=== PATIENT | male | born 1955 | race Two or more races ===

== ENCOUNTER 2022-04-30 11:33 | Inpatient (IN) | payer OTHER ==
[~2022-04-30] VITALS: Ht 172.7 cm; Wt 68.6 kg
--- NOTE | 2022-04-30 11:35 | NUR ---
RECEIVED PT 67 YRS MALE CAME HOME BY FAMILY CARE C/O TRIP AND FALL LAST NIGHT C/O PAIN ON RT HIP DIFFORMITY
--- NOTE | 2022-04-30 11:40 | NUR ---
SEEN BY DR. ROCHA
--- NOTE | 2022-04-30 11:50 | NUR ---
MOVE SHEET SUBMITTED.
--- NOTE | 2022-04-30 11:57 | NUR ---
X RAY AT BED SIDE
--- NOTE | 2022-04-30 12:00 | NUR ---
PT REFUSED PAIN MEDICTION
[2022-04-30] MEDS ORDERED: AMLO-212 PO (12:27)
--- NOTE | 2022-04-30 12:40 | NUR ---
C XRAY DONE AT BED SIDE
--- NOTE | 2022-04-30 12:45 | NUR ---
INSERTED ANG CATHETER G 18 ON LT AC BLOOD DROW AND SENT TO LAB T&C MTACH BLOOD DROW
[2022-04-30 12:59] LABS: HEMATOCRIT 40 % (39-51); HEMOGLOBIN 13.1 g/dL (13.5-17.5); MEAN CORPUSCULAR HGB CONC 33 g/dl (31.0-36.0); MEAN CORPUSCULAR VOLUME 95 fL (80-96); NEUTROPHILS % (AUTO) 87.4 % (43.0-81.0); PLATELET COUNT (AUTO) 175 K/uL (150-450); WHITE BLOOD COUNT (AUTO) 14.4 K/uL (4.3-11.0)
[2022-04-30 13:00] LABS: BASOPHILS % (AUTO) 0.2 % (0.0-2.0); EOSINOPHILS % (AUTO) 0.2 % (0.0-6.0); LYMPHOCYTES # (AUTO) 0.9 K/uL (0.8-4.8); MONOCYTES # (AUTO) 0.9 K/uL (0.1-1.30); MONOCYTES % (AUTO) 6.2 % (2.0-12.0); NEUTROPHILS # (AUTO) 12.6 K/uL (1.8-8.9)
[2022-04-30 13:08] LABS: CALCIUM, SERUM 9.1 mg/dL (8.5-10.1); CREATININE 0.9 mg/dL (0.6-1.3); POTASSIUM 3.8 mmol/L (3.5-5.1)
--- NOTE | 2022-04-30 13:17 | NUR ---
COVID SWAB DONE AND SENT TO LAB
--- NOTE | 2022-04-30 13:38 | NUR ---
PT UCOOPRATIVE TRAY TO GOT OUT OF BED FOR VODING
[2022-04-30] MEDS ORDERED: MORPHINE SULFATE INJ 2 MG/ML DISP.SYRIN IV PRN (14:30)
[2022-04-30] MEDS ORDERED: Z GUARD REMEDY 4 OZ OINT TP PRN (14:30)
[2022-04-30] MEDS ORDERED: ACETAMINOPHEN 325 MG TABLET PO PRN (14:30)
[2022-04-30] MEDS ORDERED: MAGNESIUM HYDROXIDE 30 ML UDC PO PRN (14:30)
[2022-04-30] MEDS ORDERED: MAG HYDROX/AL HYDROX/SIMETH 30 ML UDC PO PRN (14:30)
[2022-04-30] MEDS ORDERED: ONDANSETRON HCL/PF 4 MG/2 ML VIAL IVP PRN (14:30)
--- NOTE | 2022-04-30 14:45 | NUR ---
TO CT SCAN OF RT HIP BY WC PT REFUSED TO BE TRANSFER BY JAYSHREE
--- NOTE | 2022-04-30 15:08 | NUR ---
BED 308-1 (ADMITTING MADE AWARE)
--- NOTE | 2022-04-30 15:35 | NUR ---
HAND OFF WANDA FERGUSON TO ROOM 308-1 VIA JAYSHREE STABLE VS STABLE CONDITION
--- NOTE | 2022-04-30 18:06 | NUR ---
PATIENT IS A/OX 4, VSS, AFEBRILE. ABLE TO MAKE NEEDS KNOWN. IV ACCESS ON L AC #18, SL. HU CATHETER WAS INSERTED, ADEQUATE OUTPUT. NPO P MN FOR POSSIBLE SURGERY TOMORROW. SAFETY MEASURES INITIATED. BED IN LOWEST POSITION, BRAKES LOCKED. SIDE RAILS UP X2. CALL LIGHT WITHIN REACH. WILL ENDORSE CONTINUITY OF CARE TO ONCOMING SHIFT.
[2022-04-30] MEDS: IV D5/0.45 NACL 1,000 ML IV PRN (18:46)
[2022-04-30 20:00] VITALS: BP 136/67
--- NOTE | 2022-04-30 20:02 | NUR ---
RN OPENING NOTE PATIENT AWAKE IN BED W/ FAMILY AT BEDSIDE. A/OX4. NO S/S OF DISTRESS, BREATHING WITHOUT DIFFICULTY ON ROOM AIR. LAC #18 INTACT AND PATENT. SAFETY MEASURES IN PLACE: BED LOCKED IN PLACE AND AT LOWEST POSITION, RAILS UP X2, CALL WALTERS WITHIN REACH. WILL CONTINUE TO MONITOR PATIENT.
--- NOTE | 2022-04-30 20:45 | NUR ---
RN NOTE PATIENT HAS REFUSED IVF. PATIENT STATES HE DOES NOT WANT THE FLUIDS AT THIS TIME. PATIENT O/W STABLE; WILL CONTINUE TO MONITOR PATIENT.
--- NOTE | 2022-05-01 05:40 | NUR ---
RN NOTE PATIENT SIGNED ALL NECESSARY CONSENTS FOR PROCEDURE DUE LATER ON TODAY - SCHEDULED FOR 1200. PATIENT GIVEN PATIENT'S RIGHTS ON BLOOD TRANSFUSION PAMPHLET. PATIENT EXHIBITS A POSITIVE ATTITUDE PROCEDURE ALBEIT WITH NOTED ANXIETY. PATIENT STABLE; WILL CONTINUE TO MONITOR.
[2022-05-01 05:44] LABS: BASOPHILS % (AUTO) 0.2 % (0.0-2.0); HEMATOCRIT 37 % (39-51); HEMOGLOBIN 12.2 g/dL (13.5-17.5); LYMPHOCYTES # (AUTO) 0.7 K/uL (0.8-4.8); LYMPHOCYTES % (AUTO) 7.3 % (20.0-44.0); MEAN CORPUSCULAR HGB CONC 33 g/dl (31.0-36.0); MEAN CORPUSCULAR VOLUME 94 fL (80-96); MONOCYTES # (AUTO) 1.2 K/uL (0.1-1.30); MONOCYTES % (AUTO) 11.3 % (2.0-12.0); NEUTROPHILS # (AUTO) 8.3 K/uL (1.8-8.9); NEUTROPHILS % (AUTO) 81.2 % (43.0-81.0); PLATELET COUNT (AUTO) 155 K/uL (150-450); RED BLOOD CELL COUNT(AUTO) 3.88 MIL/uL (4.5-6.0); WHITE BLOOD COUNT (AUTO) 10.2 K/uL (4.3-11.0)
[2022-05-01 06:04] LABS: ALBUMIN 3.2 g/dL (3.4-5.0); BILIRUBIN,TOTAL 0.6 mg/dL (0.2-1.0); CALCIUM, SERUM 8.7 mg/dL (8.5-10.1); CREATININE 0.7 mg/dL (0.6-1.3); MAGNESIUM 2.3 mg/dL (1.8-2.4); PHOSPHORUS 3.4 mg/dL (2.5-4.9); POTASSIUM 3.5 mmol/L (3.5-5.1); TOTAL PROTEIN, SERUM 6.9 g/dL (6.4-8.2)
--- NOTE | 2022-05-01 06:51 | NUR ---
RN CLOSING NOTE PATIENT AWAKE IN BED. A/OX4. NO S/S OF DISTRESS, BREATHING WITHOUT DIFFICULTY ON ROOM AIR. LAC #18 INTACT AND PATENT. PATIENT CONTINUES TO DECLINE IVF FOR NOW. SAFETY MEASURES IN PLACE: BED LOCKED AND AT LOWEST POSITION, RAILS UP X2. CALL WALTERS WITHIN REACH. WILL ENDORSE TO DAY SHIFT FOR EUN.
[2022-05-01 08:00] VITALS: BP 150/68
--- NOTE | 2022-05-01 08:21 | NUR ---
RN OPENING NOTE RECEIVED PATIENT IN BED, AO X 3. ABLE TO RESPONDS ALL STIMULI. RESPIRATORY EVEN AND UNLABORED IN ROOM AIR. IN NO ACUTE DISTRESS OBSERVED. SKIN IS WARM TO TOUCH, KEEP CLEAN/DRY. PATIENT UNDER GOING TO SURGERY FOR ORIF THIS AFTERNOON AND NPO STATUS. KEPT ELEVATED HOB FOR ASPIRATION PRECAUTION/ENSURE AIRWAY, ALSO LOWEST BED POSITIONED. BED ALARM IS ON AT ALL THE TIME FOR SAFETY. CALL LIGHT WITHIN REACH, WILL CONTINUE TO MONITOR.
[2022-05-01] MEDS: AMLODIPINE BESYLATE 5 MG TABLET PO SCH (09:00)
--- NOTE | 2022-05-01 09:32 | NUR ---
PATIENT GOING TO ORIF PROCEDURE, WILL HOLD PO MEDICATION.
[2022-05-01 10:16] LABS: BILIRUBIN,URINE NEGATIVE (NEGATIVE); COLOR,URINE YELLOW (YELLOW); LEUKOCYTE ESTERASE ,URINE NEGATIVE (NEGATIVE); NITRITE, URINE NEGATIVE (NEGATIVE); PH,URINE 7.5 (5.0-8.0); PROTEIN,URINE TRACE mg/dl (NEGATIVE); UGLUCOSE NEGATIVE (NEGATIVE); UROBILINOGEN,URINE 0.2 EU/dL (0.2)
[2022-05-01 10:20] LABS: BACTERIA,URINE None seen /HPF (None Seen); RBC,URINE 21-50 /HPF (0-2); SQUAMOUS EPITHELIAL CELL,UR Few /HPF (None Seen); WBC,URINE 0-2 /HPF (0-3)
--- NOTE | 2022-05-01 11:30 | NUR ---
THE PATIENT LEFT TO THE PROCEDURE (RIGHT HIP OPEN REDUCTION AND INTERNAL FIXATION WITH INTRA-MEDIALLY NAIL) IN STABLE CONDITION.
[2022-05-01] MEDS ORDERED: FENTANYL PF 100MCG/2ML AMPUL ONE (11:32)
[2022-05-01] MEDS ORDERED: KETAMINE HCL (500MG/10ML) 50 MG/ML VIAL ONE (11:33)
[2022-05-01] MEDS ORDERED: TRANEXAMIC ACID 1,000 MG/10 ML VIAL ONE (11:33)
[2022-05-01] MEDS ORDERED: FAMOTIDINE/PF INJ 20 MG/2 ML VIAL IV ONE (11:33)
[2022-05-01] MEDS ORDERED: MIDAZOLAM HCL 2 MG/2ML VIAL ONE (11:42)
[2022-05-01] MEDS ORDERED: BUPIVACAINE 0.5 % PF 150 MG/30 ML VIAL ONE (11:42)
[2022-05-01] MEDS ORDERED: BUPIVACAINE 0.25% 75 MG/30 ML VIAL ONE (12:33)
[2022-05-01] MEDS ORDERED: LABETALOL HCL IV 100MG VIAL ONE (12:51)
[2022-05-01] MEDS ORDERED: HYDROCODONE/APAP 5/325MG TABLET PO PRN ×2 (14:00)
[2022-05-01] MEDS ORDERED: DOCUSATE SODIUM 100 MG CAPSULE PO PRN (14:00)
[2022-05-01] MEDS ORDERED: DOCUSATE SODIUM 250 MG CAPSULE PO PRN (14:00)
[2022-05-01] MEDS ORDERED: ONDANSETRON HCL/PF 4 MG/2 ML VIAL IVP PRN (14:00)
[2022-05-01] MEDS ORDERED: MORPHINE SULFATE INJ 4 MG/ML DISP.SYRIN IV PRN (14:00)
[2022-05-01] MEDS ORDERED: BISACODYL SUPP (10 MG) 10 MG/SUPP.RECT SUPP.RECT RC PRN (14:00)
[2022-05-01 14:45] VITALS: BP 134/65
--- NOTE | 2022-05-01 14:45 | NUR ---
PATIENT BACK FROM SURGERY RECIEVED REPORT BY ZOYA/RN. CHECK VITAL SIGN AND DOCUMENTED AT IN INTERVENTION.
[2022-05-01 16:00] VITALS: BP_SYST 122; BP_SYST 127; BP_DIAS 60
--- NOTE | 2022-05-01 18:00 | NUR ---
RN CLOSING NOTE PATIENT RESTING IN BED. IN NO ACUTE DISTRESS OBSERVED. RESPIRATORY EVEN AND UNLABORED IN ROOM AIR. IN NO ACUTE RESPIRATORY DISTRESS OBSERVED. SKIN IS WARM TO TOUCH KEEP CLEAN/DRY. THE PATIENT S/P RIGHT HIP SX, DENIES PAIN R/T POST OP. RESUMED REGULAR DIET WITHOUT N/V. IN STABLE VITALS SIGN. KEPT ELEVATED HOB FOR ENSURE AIRWAY/ASPIRATION PRECAUTION, AND LOWEST BED POSITION. BED ALARM IS ON AT ALL THE TIME FOR SAFETY. 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
--- NOTE | 2022-05-01 19:40 | NUR ---
MS RN OPENING NOTE RECEIVED PATIENT FROM AM NURSE, AWAKE IN BED, A/OX4, ABLE TO MAKE NEEDS KNOWN, ON ROOM AIR, TOLERATING WELL AND WITH NO S/S OF DISTRESS NOTED; S/P RIGHT HIP SURGERY; DENIES ANY PAIN AND DISCOMFORT AT THIS TIME. WITH LAC G18 RUNNING WITH D51/2NS AT 75ML/HR; WITH HU CATHETER IN PLACE DRAINING TO YELLOW COLORED URINE; ENCOURAGED VERBALIZATION OF NEEDS; SAFETY MEASURES IMPLEMENTED, KEPT BED IN LOCKED AND IN LOW POSITION, SIDE RAILS UP X 3, TABLE AND CALL LIGHT WITHIN REACH; WILL CONTINUE TO MONITOR THROUGHOUT SHIFT
[2022-05-01 20:00] VITALS: BP 131/61
[2022-05-01] MEDS: CEFAZOLIN 1 GM in IV D5W 50 ML IV SCH (20:07)
[2022-05-02] MEDS: IV D5/0.45 NACL 1,000 ML IV PRN (03:03)
[2022-05-02] MEDS: CEFAZOLIN 1 GM in IV D5W 50 ML IV SCH (03:41)
[2022-05-02 05:43] LABS: BASOPHILS % (AUTO) 0.1 % (0.0-2.0); EOSINOPHILS % (AUTO) 0.1 % (0.0-6.0); HEMATOCRIT 32 % (39-51); HEMOGLOBIN 10.7 g/dL (13.5-17.5); LYMPHOCYTES # (AUTO) 0.8 K/uL (0.8-4.8); LYMPHOCYTES % (AUTO) 7.4 % (20.0-44.0); MEAN CORPUSCULAR HGB CONC 34 g/dl (31.0-36.0); MEAN CORPUSCULAR VOLUME 95 fL (80-96); MONOCYTES # (AUTO) 1.6 K/uL (0.1-1.30); MONOCYTES % (AUTO) 14.2 % (2.0-12.0); NEUTROPHILS # (AUTO) 8.6 K/uL (1.8-8.9); NEUTROPHILS % (AUTO) 78.2 % (43.0-81.0); PLATELET COUNT (AUTO) 126 K/uL (150-450); RED BLOOD CELL COUNT(AUTO) 3.34 MIL/uL (4.5-6.0)
[2022-05-02 06:18] LABS: ALBUMIN 2.6 g/dL (3.4-5.0); BILIRUBIN,TOTAL 0.5 mg/dL (0.2-1.0); CALCIUM, SERUM 7.9 mg/dL (8.5-10.1); CREATININE 0.8 mg/dL (0.6-1.3); MAGNESIUM 2.3 mg/dL (1.8-2.4); PHOSPHORUS 2.9 mg/dL (2.5-4.9); POTASSIUM 3.8 mmol/L (3.5-5.1); TOTAL PROTEIN, SERUM 6.2 g/dL (6.4-8.2)
--- NOTE | 2022-05-02 06:47 | NUR ---
MS RN CLOSING NOTE PATIENT IN BED, A/OX4, ABLE TO MAKE NEEDS KNOWN, ON NASAL CANNULA , TOLERATING WELL AND WITH NO S/S OF DISTRESS NOTED; S/P RIGHT HIP SURGERY; DENIES ANY PAIN AND DISCOMFORT AT THIS TIME. WITH LAC G18 RUNNING WITH D51/2NS AT 75ML/HR; WITH HU CATHETER IN PLACE DRAINING TO YELLOW COLORED URINE APPROXIMATELY 800ML; ADMINISTERED MEDICATIONS PRESCRIBED; PATIENT'S NEEDS ATTENDED; MONITORED PATIENT ACCORDINGLY; SAFETY MEASURES IMPLEMENTED, KEPT BED IN LOCKED AND IN LOW POSITION, SIDE RAILS UP X 3, TABLE AND CALL LIGHT WITHIN REACH; WILL ENDORSE TO AM NURSE FOR EUN.
--- NOTE | 2022-05-02 07:49 | NUR ---
MS RN OPENING NOTE Patient in bed, awake. A/O x 4, able to make needs known. On room air, breathing evenly and unlabored. No SOB or s/s or distress noted. IV access on LAC #18 infusing D5 1/2 NS at 75 ml/hr. Banks catheter in place draining to a yellow colored urine. Safety precautions in place: bed in low, locked position; siderails up x 2; call light within reach. Will continue to monitor.
[2022-05-02 08:00] VITALS: BP 139/59
[2022-05-02 08:36] VITALS: BP 139/59
[2022-05-02] MEDS: AMLODIPINE BESYLATE 5 MG TABLET PO SCH (08:36)
[2022-05-02] MEDS ORDERED: ENOXAPARIN SODIUM 40 MG/0.4 ML DISP.SYRIN SQ SCH (09:00)
[2022-05-02] MEDS ORDERED: RIVA10TA PO (10:30)
--- NOTE | 2022-05-02 17:35 | NUR ---
DISCHARGE NOTE Received order for discharge. Patient is A/O x 4, able to make needs known. Stable on room air, no SOB or s/s of distress noted. Discharge instructions given both verbally and in written form, patient verbalized understanding. Belongings accounted for, belonging sheet signed. Surgical dressing c/d/i. IV access removed, pressure dressing applied. ID bands removed. Patient left in stable condition with family via private car.
== END 2022-05-02 17:59 | disposition home health service (06) | DRG 482 ==
LOC: ER 11:52 → MED 15:20
PROVIDERS: ADMIT Internal Medicine; ATTEND Internal Medicine
PROC: 0QS606Z Reposition Right Upper Femur with Intramedullary Internal Fixation Device, Open Approach (ICD-10-PCS; principal; 2022-04-30)
DX: S72.141A Displaced intertrochanteric fracture of right femur, initial encounter for closed fracture (principal); W01.0XXA Fall on same level from slipping, tripping and stumbling without subsequent striking against object, initial encounter; Y93.K1 Activity, walking an animal; Y92.9 Unspecified place or not applicable; D64.9 Anemia, unspecified; I10 Essential (primary) hypertension; D72.829 Elevated white blood cell count, unspecified; Z79.899 Other long term (current) drug therapy
CPT/HCPCS: 36415; 71045-TC; 73501; 73502; 73552; 73700-TC; 80048-TC; 80053-TC; 81001; 83735-TC; 84100-TC; 85025-TC; 85730-TC; 86850-TC; 87081-TC; 93307-TC; 97116-TC; 97530-TC; A4217; A4223; A6209; A6253; C1713; C9803; G0378; J0360; J0690; J1100; J1650; J2250; J2270; J2704; J3010; J3490; J7030; J7050; J7060